=== PATIENT | male | born 1975 | race Two or more races ===

== ENCOUNTER 2022-10-07 21:56 | Inpatient (IN) | payer OTHER ==
[~2022-10-07] VITALS: Ht 172.7 cm; Wt 90.0 kg
[2022-10-07 23:08] LABS: MEAN CORPUSCULAR VOLUME 84 fL (80-100); MONOCYTES # (AUTO) 0.6 K/uL (0.1-1.0); NEUTROPHILS # (AUTO) 4.6 K/uL (1.8-7.7); RED CELL DISTRIBUTION WIDTH 12.5 % (11.5-14.5)
[2022-10-07 23:12] LABS: BASOPHILS % (AUTO) 0.3 % (0.0-2.0); EOSINOPHILS % (AUTO) 2.4 % (1.0-6.0); HEMATOCRIT 46.4 % (41-53); HEMOGLOBIN 15.9 g/dL (13.5-17.5); LYMPHOCYTES % (AUTO) 26.6 % (22.0-44.0); MEAN CORPUSCULAR HEMOGLOBIN 28.6 pg (26.0-34.0); MEAN CORPUSCULAR HGB CONC 34.1 G/dL (31.0-37.0); MONOCYTES % (AUTO) 8.6 % (2.0-9.0); NEUTROPHILS % (AUTO) 62.1 % (40.0-70.0); PLATELET COUNT (AUTO) 228 K/uL (150-450); RED BLOOD CELL COUNT(AUTO) 5.54 MIL/uL (4.50-5.90)
[2022-10-07 23:17] LABS: ANION GAP 3 mmol/L (8-16); CALCIUM, TOTAL 9.6 mg/dL (8.8-10.5); CARBON DIOXIDE 32 mmol/L (22-29); CHLORIDE 102 mmol/L (98-107); CREATININE 0.98 mg/dL (0.60-1.30); GLUCOSE,RANDOM 112 mg/dL (70-110); POTASSIUM 4.3 mmol/L (3.5-5.1); SODIUM SERUM 137 mmol/L (136-145); UREA NITROGEN, BLOOD 16 mg/dL (7-18)
[2022-10-07 23:18] LABS: GLOMERULAR FILTR. RATE CALC > 60 mL/min (>60)
[2022-10-07 23:23] LABS: ALANINE AMINOTRANSFERASE 56 U/L (12-78); ALBUMIN 3.9 g/dL (3.4-5.0); ALKALINE PHOSPHATASE 168 U/L (46-116); ASPARTATE AMINOTRANSFERASE 32 U/L (15-37); BILIRUBIN,TOTAL 0.9 mg/dL (0.1-1.0); TOTAL PROTEIN, SERUM 8.1 g/dL (6.4-8.2)
[2022-10-07 23:45] LABS: AMPHET/METH SCREEN,URINE NEGATIVE (NEGATIVE); BARBITURATE SCREEN, URINE NEGATIVE (NEGATIVE); BENZODIAZEPINES SCREEN,URINE NEGATIVE (NEGATIVE); CANNABINOID SCREEN,URINE NEGATIVE (NEGATIVE); COCAINE SCREEN,URINE NEGATIVE (NEGATIVE); METHADONE SCREEN, URINE NEGATIVE (NEGATIVE); OPIATE SCREEN,URINE NEGATIVE (NEGATIVE)
[2022-10-07 23:46] LABS: PHENCYCLIDINE SCREEN,URINE NEGATIVE (NEGATIVE)
[2022-10-08 01:37] LABS: COVID AG,FIA SOURCE NASAL SWAB
[2022-10-08 05:20] VITALS: BP 133/84
[2022-10-08] MEDS ORDERED: ACETAMINOPHEN 325 MG TABLET PO PRN ×2 (05:30→13:00)
[2022-10-08 07:29] VITALS: BP 119/73
[2022-10-08] MEDS: SERTRALINE HCL 50 MG TABLET PO SCH (09:16)
[2022-10-08] MEDS ORDERED: GuaiFENesin/D-METHORPHAN [SUGAR-FREE] 200-20MG/10 ML SYRUP UDCUP PO PRN (13:00)
[2022-10-08] MEDS ORDERED: ALBUTEROL SULFATE HFA 90 MCG/PUFF 8 GM INHALER IH PRN (13:00)
[2022-10-08] MEDS ORDERED: MAGNESIUM HYDROXIDE SUSPENSION 30 ML UDCUP PO PRN (13:00)
[2022-10-08] MEDS ORDERED: PETROLATUM,WHITE 28 GM JELLY TP PRN (13:00)
[2022-10-08] MEDS ORDERED: IBUPROFEN 400 MG TABLET PO PRN (13:00)
[2022-10-08] MEDS ORDERED: MAG HYDROX/AL HYDROX/SIMETH ES 30 ML SUSPENSION UDCUP PO PRN (13:00)
[2022-10-08] MEDS ORDERED: LOPERAMIDE HCL 2 MG CAPSULE PO PRN (13:00)
[2022-10-08] MEDS ORDERED: NICOTINE 14 MG/24 HOUR PATCH TD PRN (13:00)
[2022-10-08] MEDS ORDERED: ONDANSETRON HCL 4 MG TABLET PO PRN (13:00)
[2022-10-08] MEDS ORDERED: DOCUSATE SODIUM 100 MG CAPSULE PO PRN (13:00)
[2022-10-08] MEDS ORDERED: CloNIDine HCL 0.1 MG TABLET PO PRN (13:00)
[2022-10-08 15:20] VITALS: BP 179/79
[2022-10-08 19:16] VITALS: BP 142/69
[2022-10-09 05:24] VITALS: BP 127/75
[2022-10-09 07:17] VITALS: BP 133/78
[2022-10-09] MEDS: SERTRALINE HCL 50 MG TABLET PO SCH (08:36)
[2022-10-09 15:23] VITALS: BP 121/72
[2022-10-10 05:00] VITALS: BP 129/74
[2022-10-10 08:21] VITALS: BP 139/74
[2022-10-10] MEDS: SERTRALINE HCL 50 MG TABLET PO SCH (09:16)
[2022-10-10 09:18] VITALS: BP 126/62
== END 2022-10-10 11:40 | DRG 885 ==
LOC: EMS 22:34 → 6S 10-08 04:45
PROVIDERS: ADMIT Hospitalist; ATTEND Hospitalist
DX: F33.2 Major depressive disorder, recurrent severe without psychotic features (principal); R45.851 Suicidal ideations; E16.2 Hypoglycemia, unspecified; I10 Essential (primary) hypertension; E66.9 Obesity, unspecified; Z20.822 Contact with and (suspected) exposure to COVID-19; F41.9 Anxiety disorder, unspecified; Z79.899 Other long term (current) drug therapy; Z68.30 Body mass index [BMI] 30.0-30.9, adult
CPT/HCPCS: 80053; 85025; 99285; G0480